=== PATIENT | female | born 1990 | race Two or more races ===

== ENCOUNTER 2020-11-20 14:35 | Emergency (ER) | payer BC ==
[~2020-11-20] VITALS: Ht 162.6 cm; Wt 81.6 kg
--- NOTE | 2020-11-20 15:03 | NUR ---
ED Nurse Note: pt presents to ED c/o heat, swelling and redness to L deltoid at injection site where she received COVID-19 vaccine on 11/12. pt reports that she experienced CHAVEZ, cough and nausea for 24 hours after the vaccine but that the swelling and itching have gotten worse and nausea has not been resolved. pt reports she only has food allergies, denies drug allergies.
[2020-11-20 15:05] VITALS: BP 187/116
[2020-11-20] MEDS ORDERED: Lidocaine 1%/ 10mg/ml/EPI 0.01mg/ml 20ml INJ ONE (15:45)
--- NOTE | 2020-11-20 15:53 | Emergency Room Report ---
History of Present Illness General Chief Complaint: Allergic Reaction Source: Patient Present Illness HPI Patient is a 30-year-old female presents for increased left-sided arm discomfort. Patient had first moderna coronavirus vaccination on 11/12. Reports having gradually worsening swelling and redness to the injection site. Increased itchiness to the area. Had recent allergic reaction after eating tomatoes. Denies any bleeding or bruising. Denies any fever. Had not been having any vomiting or diarrhea. No prior history of coronavirus infection. 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 COVID-19 Screening: Negative COVID-19 COVID-19 Testing Source: work Patient History Last Menstrual Period: last week Now: No Nursing Documentation-[facility] Past Medical History: No Stated History Physical Exam Vital Signs Date Time Temp Pulse Resp B/P (MAP) Pulse Ox O2 Delivery O2 Flow Rate FiO2 11/20/20 14:46 99.1 91 18 187/116 (139) 99 Room Air Sp02 EP Interpretation: reviewed, normal General Appearance: normal inspection, well appearing, no apparent distress, alert, GCS 15, non-toxic Head: atraumatic ENT: normal ENT inspection, hearing grossly normal, normal voice Neck: normal inspection, full range of motion, supple, no bony tend Respiratory: normal inspection, lungs clear, normal breath sounds, no respiratory distress, no retraction, no wheezing Cardiovascular #1: regular rate, rhythm, no edema Gastrointestinal: normal inspection, normal bowel sounds, non tender, soft, no guarding, no hernia Genitourinary: no CVA tenderness Musculoskeletal: normal inspection, back normal, normal range of motion Neurologic: alert, oriented x3, responsive, speech normal, normal inspection Psychiatric: normal inspection, judgement/insight normal, mood/affect normal Skin: other - Erythema and induration to the left shoulder. No fluctuance noted Medical Decision Making Diagnostic Impression: Primary Impression: Allergic reaction Additional Impression: Hypertension ER Course Patient presented for left shoulder redness discomfort. Differential diagnosis include is not limited to abscess, allergic reaction, contact dermatitis, cellul itis. Patient had recent vaccination to the location of concern. This occurred greater than 1 week after vaccine. Patient's arm does show some evidence of erythema this is somewhat concerning for a cellulitis. Patient was given oral antibiotics. She did not have any improvement previously with Benadryl. Does not appear the systemic steroids are indicated at this time. Patient was given prescription for oral antibiotics and consented for needle aspiration. Needle aspiration showed no evidence of purulent material. Patient was advised to have the area rechecked in 2 to 3 days. She advised to return if she had any worsening condition or other concerns. She is advised to follow a low-salt diet due to high blood pressure. Blood pressure improved spontaneously. This medical record is generated with [email or web address] horticultural specialty grower inside software. There may be some horticultural specialty grower inside discrepancies related to use of this software Last Vital Signs Date Time Temp Pulse Resp B/P (MAP) Pulse Ox O2 Delivery O2 Flow Rate FiO2 11/20/20 15:05 99.1 18 187/116 99 Room Air 11/20/20 15:05 91 Status: improved Disposition: HOME, SELF-CARE Condition: Stable Scripts Cephalexin* (KEFLEX*) 500 Mg Capsule 500 MG ORAL EVERY 6 HOURS, #28 CAP Prov: Carloz Lyle MD 11/20/20 Referrals: [facility] (PCP) Carloz Lyle MD Nov 20, 2020 15:53
--- NOTE | 2020-11-20 15:55 | NUR ---
ED Nurse Note: ERMD at pt bedside for procedure
[2020-11-20] MEDS ORDERED: CEPHALEXIN500 MG ORAL (15:57)
[2020-11-20] MEDS ORDERED: Cephalexin 500mg cap ORAL ONE (16:00)
--- NOTE | 2020-11-20 16:30 | NUR ---
ED Nurse Note: BP rajputrod 177/98, ERMD approved pt stable enough for discharge, needs to f/u with PCP
[2020-11-20 16:36] VITALS: BP 177/98
--- NOTE | 2020-11-20 16:36 | NUR ---
ER DISCHARGE NOTE: Patient is cleared to be discharged per ERMD, pt is aox4, on room air, with stable vital signs. pt was given dc and prescription instructions, pt was able to verbalize understanding, pt id band removed without complications. pt is able to ambulate with steady gait. pt took all belongings.
== END 2020-11-20 16:35 | disposition home or self-care (01) ==
LOC: EMR 15:17
DX: T78.40XA Allergy, unspecified, initial encounter (principal); X58.XXXA Exposure to other specified factors, initial encounter; I10 Essential (primary) hypertension; Z91.011 Allergy to milk products; Z91.018 Allergy to other foods
CPT/HCPCS: 99282

== ENCOUNTER 2020-11-22 11:16 | Emergency (ER) | payer BC ==
[~2020-11-22] VITALS: Ht 162.6 cm; Wt 81.6 kg
[~2020-11-22 11:16] MED LIST: CEPHALEXIN500 MG ORAL
[2020-11-22 11:45] VITALS: BP 154/100
--- NOTE | 2020-11-22 12:01 | Emergency Room Report ---
History of Present Illness General Chief Complaint: Skin Rash/Abscess Source: Patient Present Illness HPI The patient states that she had a COVID-19 vaccine on the 15 of this month. She was seen a few days ago for a local reaction at the vaccine injection site. She returns today because she notes that the redness has not improved. She is taking antibiotics as prescribed previously. She states she has been overall fatigued. She has no other complaints. 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 COVID-19 Screening: Negative COVID-19 COVID-19 Testing Source: nasal Patient History Past Medical History: none, see triage record Social History: Denies: smoking, alcohol use, drug use Now: No Reviewed Nursing Documentation: PMH: Agreed; PSxH: Agreed Nursing Documentation-PMH Past Medical History: No Stated History Review of Systems All Other Systems: negative except mentioned in HPI Physical Exam Vital Signs Date Time Temp Pulse Resp B/P (MAP) Pulse Ox O2 Delivery O2 Flow Rate FiO2 11/22/20 11:35 98.4 77 17 154/100 (118) 97 Room Air Sp02 EP Interpretation: reviewed, normal General Appearance: no apparent distress, alert, GCS 15, non-toxic Head: normocephalic, atraumatic Eyes: bilateral eye normal inspection ENT: hearing grossly normal, normal pharynx, no angioedema, normal voice Neck: normal inspection, full range of motion Respiratory: no respiratory distress, no retraction, no accessory muscle use, speaking full sentences Cardiovascular #1: regular rate, rhythm, no edema Rectal: deferred Musculoskeletal: back normal, normal range of motion, gait/station normal, non- tender Neurologic: alert, motor strength/tone normal, oriented x3, sensory intact, responsive, speech normal Psychiatric: judgement/insight normal, memory normal, mood/affect normal, no suicidal/homicidal ideation Reflexes: 3+ bicep (R), 3+ bicep (L), 3+ tricep (R), 3+ tricep (L), 3+ knee (R), 3+ knee (L) Skin: other - L. lateral arm with approximately [id number] irregular region that is firm and erythematous and ttp at the site of the COVID-19 injection site. Lymphatic: no adenopathy Medical Decision Making Diagnostic Impression: Primary Impression: Local reaction to COVID-19 vaccine ER Course This patient has a local reaction to the COVID-19 vaccine. This will resolve spontaneously with time. Educated the patient that this indicates a good immune response. The patient also has fatigue and other symptoms consistent with an immune response to the vaccine. Overall patient is well-appearing and nontoxic. I will give the patient off work for this week so that she can rest and start next Sunday. I educated the patient that she could stop the antibiotics if she wants. She was educated to use Tylenol and Motrin as needed. Patient is given close return precautions and follow-up instructions. Last Vital Signs Date Time Temp Pulse Resp B/P (MAP) Pulse Ox O2 Delivery O2 Flow Rate FiO2 11/22/20 11:45 98.4 76 17 154/100 97 Room Air Status: improved Disposition: HOME, SELF-CARE Condition: Improved Meg Rahman DO Nov 22, 2020 12:01
[2020-11-22 12:10] VITALS: BP 145/92
--- NOTE | 2020-11-22 12:10 | NUR ---
ED Nurse Note: Pt cleared by health care Provider for discharge. DC instructions was given and explained to pt and verbalized understanding of teachings. All medical deviecs such as ID band removed. Pt is AAO x4, ambulatory and left with all personal belongings.
== END 2020-11-22 12:28 | disposition home or self-care (01) ==
LOC: EMR 11:58
DX: T88.1XXA Other complications following immunization, not elsewhere classified, initial encounter (principal); X58.XXXA Exposure to other specified factors, initial encounter; Y92.9 Unspecified place or not applicable
CPT/HCPCS: 99281